=== PATIENT | female | born 1975 | race Caucasian/White ===

== ENCOUNTER 2017-12-24 16:32 | Outpatient (CLI) | payer BC ==
--- NOTE | 2017-12-24 17:42 | RAD ---
THREE VIEWS OF THE RIGHT SHOULDER 12/24/17 COMPARISON: None. HISTORY: Right shoulder pain. FINDINGS: There is no widening of the right AC or CC interspace. There is no acute fracture or evidence of disl ocation. IMPRESSION: No acute findings. POS: REGINE
== END 2017-12-24 16:33 | disposition home or self-care (01) ==
LOC: RAD-FRANK 16:32
PROVIDERS: ATTEND Nurse Practitioner Family
DX: M25.511 Pain in right shoulder (principal)

== ENCOUNTER 2018-07-02 08:48 | Outpatient (CLI) | payer BC ==
--- NOTE | 2018-07-02 11:47 | RAD ---
HYSTEROSALPINGOGRAM: INDICATIONS: Infertility. The patient is a 6. Last was five years ago. She has been trying to become for 18 months without success. The patient had a previous HSG, which was normal sev eral years ago. FINDINGS: The feed mill lab technician film of the pelvis reveals streaky extraluminal contrast in the pelvis from previous barium extravasation. There is a focal area of contrast accumulation in the right pelvis, measuring 2 to 3 cm. After injection of contrast, the endometrial cavity opacifies and appears unremarkable. Neither fallopian tube opacified, even with full injection of 20 mL of iodinated contrast, with some pressure administered with injection. IMPRESSION: Bilateral fallopian tube occlusion. Neither fallopian tube opacified, and there is bilateral occlusi on at the cornua. PROCEDURE NOTE: The procedure was discussed with the patient. The patient assumed the lithotomy position on the fluo roscopic table. A sterile speculum was placed. The cervix was cleaned with Betadine. The cervical canal was dilated with a dilator, and the uterus was sounded to approximately 4 cm. The HSG catheter was then advanced into the uterine cavity, and the balloon was inflated. Iodinated contrast was the n slowly injected under fluoroscopic observation. Sequential images were obtained. A total of 20 mL of contrast was injected, which completely filled the endometrial cavity, under some pressure. The patient tolerated the procedure well, and there were no problems or complications. The catheter and speculum were removed without difficulty. POS: REGINE
== END 2018-07-02 08:49 | disposition home or self-care (01) ==
LOC: RAD 08:48
PROVIDERS: ATTEND Obstetrics & Gynecology
DX: N97.1 Female infertility of tubal origin (principal)
CPT/HCPCS: 58340; 74740